=== PATIENT | male | born 1985 | race Caucasian/White ===

== ENCOUNTER 2017-05-21 14:13 | Emergency (ER) | payer SELFPAY ==
[2017-05-21 14:19] VITALS: BP 144/86; BMI 23.7
--- NOTE | 2017-05-21 18:03 | DR.GENAD ---
HPI - PCP Primary Care Physician: NFD - Complaint/Symptoms Chief Complaint:: MOUTH SEVERLY INFECTED. KEPT ME UP ALL NIGHT FROM HURTING. FEELS LIKE IT IS ON THE INSIDE OF JAW Self Treatment fo Chief Complaint: OTC TOOTH MEDS, MOTRIN, TYLENOL - Source History Provided: Patient - Mode of Arrival Mode of Arrival: Ambulatory - Timing Onset of Chief Complaint: 05/18/17 PMH - PMH Past Medical History: No Past Surgical History: No - Family History History of Family Medical Conditions: Yes Family Medical History: Cancer - Social History Type of Tobacco Use: Cigarettes How many years tobacco product used: 15 Does any household member use tobacco: Yes Alcohol Use: Occasionally Do you use any recreational Drugs:: No Lives With: Family Lives Where: Home - infectious screening In the last 2 months have you had wt loss of >10#?: NO Have you had fever, night sweats or hemotysis?: No Have you traveled outside the country in the last 6 months?: No Isolation: Standard PE - Vital Signs Vitals: Temperature 98.2 F Pulse Rate 91 Respiratory Rate 20 Blood Pressure 144/86 O2 Sat by Pulse Oximetry 98 - Discharge Plan Disposition: LWBS After Triage Condition: Stable - Follow ups/Referrals Follow ups/Referrals: NFD,None [Primary Care Provider] - 3 days - Instructions
== END 2017-05-21 15:39 | disposition left against medical advice (07) ==
LOC: ER 14:37
DX: K13.79 Other lesions of oral mucosa (principal)
CPT/HCPCS: 99281

== ENCOUNTER 2017-07-01 06:03 | Emergency (ER) | payer SELFPAY ==
[2017-07-01 06:14] VITALS: BP 154/97; BMI 23.7
--- NOTE | 2017-07-01 06:33 | DR.GENAD ---
HPI - PCP Primary Care Physician: nfd - Complaint/Symptoms Chief Complaint Doctors Comments: Patient is an uncircumcised male with complaint of penile pain. Chief Complaint:: patient stated he has a sex problem and has tore something on his penis and cotter has been hurting. - Source History Provided: Patient - Mode of Arrival Mode of Arrival: Ambulatory - Timing Onset of Chief Complaint: 06/29/17 PMH - PMH Past Medical History: No Past Surgical History: No - Family History History of Family Medical Conditions: No Family Medical History: Cancer - Social History Does patient currently use any type of tobacco product: Yes Have you used tobacco products in the last 12 months: Yes Type of Tobacco Use: Cigarettes How many years tobacco product used: 15 Does any household member use tobacco: Yes Alcohol Use: None Do you use any recreational Drugs:: No Lives With: Family Lives Where: Home - infectious screening In the last 2 months have you had wt loss of >10#?: NO Have you had fever, night sweats or hemotysis?: No Have you traveled outside the country in the last 6 months?: No Isolation: Standard ROS - Review of Systems Constitutional: No Symptoms Reported Eyes: No Symptoms Reported ENTM: No Symptoms Reported Respiratoy: No Symptoms Reported Cardiovascular: No Symptoms Reported Gastrointestinal/Abdominal: No Symptoms Reported Genitourinary: Discharge, Pain Neurological: No Symptoms Reported Musculoskeletal: No Symptoms Reported Integumentary: No Symptoms Reported Hematologic/Lymphatic: No Symptoms Reported Endocrine: No Symptoms Reported Psychiatric: No Symptoms Reported All Other Systems: Reviewed and Negative PE - Vital Signs Vitals: Temperature 98.6 F Pulse Rate 86 Respiratory Rate 16 Blood Pressure 154/97 O2 Sat by Pulse Oximetry 100 - General Limitations: No Limitations General Appearance: Alert, In No Apparent Distress - Head Head Exam: Normal Inspection, Atraumatic - Eyes Eye exam: Normal Appearance, PERRL, EOMI - ENT ENT Exam: Normal Exam External Ear Exam: Normal External Inspection TM/Canal Exam: Bilateral Normal Nose Exam: Normal Nose Exam Mouth Exam: Normal Inspection Throat Exam: Normal Inspection - Neck Neck Exam: Normal Inspection - Chest Chest Inspection: Normal Inspection - Respiratory Respiratory Exam: Normal Lung Sounds Bilat Respiratory Exam: Bilateral Clear to Auscultation - Cardiovascular Cardiovascular Exam: Regular Rate, Normal Rhythm - Abdominal Exam Abdominal Exam: Normal Inspection, Normal Bowel Sounds Abdominal Tenderness: negative: RUQ, RLQ, LUQ, LLQ, Epigastrium, Suprapubic, Diffuse, Mild, Moderate, Severe, Other - Extremities Extremities Exam: Normal Inspection, Full ROM - Back Back Exam: Normal Inspection - Neurologic Neurological Exam: Alert, Oriented X3, CN II-XII Intact - Psychiatric Psychiatric Exam: Normal Affect - Skin Skin Exam: Warm, Dry, Intact (phimosis of penis with discharge) - Diagnosis Discharge Problem: Phimosis/adherent prepuce - Discharge Plan Condition: Stable - Follow ups/Referrals Follow ups/Referrals: NFD,None [Primary Care Provider] - 3 days - Instructions
[2017-07-01] MEDS ORDERED: ROCEPHIN VIAL 500 MG ONE (06:38)
[2017-07-01] MEDS ORDERED: ROCEPHIN VIAL 500 MG IM ONE (06:38)
== END 2017-07-01 06:53 | disposition home or self-care (01) ==
LOC: ER 06:03
DX: N47.1 Phimosis (principal)
CPT/HCPCS: 96372; 99282; J0696